=== PATIENT | female | born 1995 | race Caucasian/White ===

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

== ENCOUNTER 2018-07-18 11:06 | Emergency (ER) | payer SELFPAY ==
[~2018-07-18] VITALS: Ht 167.6 cm; Wt 59.0 kg
[2018-07-18] MEDS ORDERED: IBUPROFEN 800MG TABLET PO ONE (12:00)
[2018-07-18 12:24] VITALS: BP 116/72
== END 2018-07-18 12:27 | disposition home or self-care (01) ==
LOC: ER 11:06
DX: N76.0 Acute vaginitis (principal)
CPT/HCPCS: 99283